=== PATIENT | female | born 1960 | race Caucasian/White ===

== ENCOUNTER 2025-02-05 09:17 | Inpatient (IN) | payer OTHER ==
[~2025-02-05] VITALS: Ht 152.4 cm; Wt 70.8 kg
[~2025-02-05 09:17] MED LIST: CODE1TAB37 PO; DOCUSATE SODIU100 MG PO; Mylicon 125MG PO
[2025-02-05 10:26] LABS: URINE APPEARANCE Clear; URINE BACTERIA 634.7 uL (0.0-1933); URINE BILIRRUBIN Negative (NEGATIVE); URINE BLOOD Negative; URINE COLOR Yellow; URINE EPITHELIAL CELLS 68.7 uL (0.0-38.8); URINE GLUCOSE Negative (NEGATIVE); URINE KETONE Negative (NEGATIVE); URINE LEUKOCYTE Trace; URINE NITRATE Negative; URINE PROTEIN Negative (NEGATIVE); URINE RBC 18.1 uL (0.0-20.8); URINE UROBILINOGEN 0.2 E.U./dl; URINE WBC 8.9 uL (0.0-23.2)
[2025-02-05 10:35] LABS: URINE CAST 0.58 uL (0.0-1.40)
[2025-02-05 10:41] LABS: BASO % 0.7 % (0.1-1.2); EOS # 0.07 (0.04-0.54); EOS % 0.5 % (0.7-7.0); LYMPH # 5.93 (1.18-3.74); LYMPH % 38.7 % (19.3-53.1); MEAN PLATELET VOLUME 10.40 fl (9.4-12.4); MONO # 1.21 (0.24-0.82); MONO % 7.9 % (4.7-12.5); NEUT # 7.54 (1.56-6.13); NEUT % 49.2 % (34.0-71.1); RED CELL DISTRIBUTION WIDTH 16.7 % (11.6-14.4)
[2025-02-05] MEDS ORDERED: SODIUM CHLORIDE 0.45 % 1,000 ML IV SCH (10:45)
[2025-02-05 10:53] LABS: ALT/SGPT 29.0 U/L (12-78); AST/SGOT 17.0 U/L (15-37); BILIRUBIN TOTAL 0.5 mg/dL (0.3-1.2); BUN CREA RATIO 24.0 (7.0-25.0); CREATININE SERUM 1.35 mg/dL (0.55-1.02); GFR 39.23; GLOBULINA 4.2 G/DL (2.4-3.5); GLUCOSE FASTING 120.0 mg/dL (65-100); OSMOLALITY SERUM 292.0 MOSM/KG (275-295)
[2025-02-05] MEDS ORDERED: ONDANSETRON HCL 2 MG/ML VIAL IV PRN (11:00)
[2025-02-05] MEDS ORDERED: hydrALAZINE HCL 20 MG VIAL IV PRN (11:00)
[2025-02-05 11:02] LABS: ERYTHROCYTE SEDIMENTATION RATE 53 mm/hr (0-30)
[2025-02-05] MEDS ORDERED: LORazepam 2 MG/ML VIAL ONE (11:15)
[2025-02-05] MEDS ORDERED: DIPHENHYDRAMINE HCL 50 MG/ML VIAL 1ML ONE (11:16)
[2025-02-05] MEDS ORDERED: LEVALBUTEROL HCL 1.25 MG/3 ML SOLUTION IH NR (12:00)
[2025-02-05] MEDS ORDERED: LOSARTAN POTASSIUM 100 MG TABLET PO NR (12:00)
[2025-02-05] MEDS ORDERED: ACETAMINOPHEN 500 MG GEL..CAP PO SCH (12:00)
[2025-02-05] MEDS ORDERED: LINEZOLID IN DEXTROSE 5% 300 ML IV NR (12:00)
[2025-02-05] MEDS ORDERED: RIVAROXABAN 10 MG TAB PO NR (12:00)
[2025-02-05] MEDS ORDERED: GUAIFENESIN 200 MG/10 ML BLIST.PACK PO SCH (12:00)
[2025-02-05] MEDS ORDERED: CEFEPIME HCL 1,000 MG VIAL IV SCH (13:00)
[2025-02-05] MEDS ORDERED: LEVALBUTEROL HCL 1.25 MG/3 ML SOLUTION IH ONE (13:28)
[2025-02-05] MEDS ORDERED: BUDESONIDE 0.5 MG/2 ML AMPUL.NEB IH ONE (13:28)
[2025-02-05] MEDS ORDERED: GUAIFENESIN 200 MG/10 ML BLIST.PACK PO ONE (14:17)
[2025-02-05 14:58] VITALS: BP 130/80
[2025-02-05] MEDS ORDERED: AMLODIPINE BESYLATE 5 MG TABLET PO SCH (17:00)
[2025-02-05 17:38] VITALS: BP 131/74
[2025-02-05] MEDS ORDERED: PANTOPRAZOLE SODIUM 40 MG/VIAL VIAL IV PUSH SCH (21:00)
[2025-02-05] MEDS ORDERED: DOCUSATE SODIUM 100MG CAP PO SCH (21:00)
[2025-02-05] MEDS ORDERED: LEVALBUTEROL HCL 1.25 MG/3 ML SOLUTION IH SCH (21:00)
[2025-02-05] MEDS ORDERED: LINEZOLID IN DEXTROSE 5% 300 ML IV SCH (21:00)
[2025-02-06 00:44] VITALS: BP 116/72; O2SAT 97
[2025-02-06 05:44] LABS: T4 FREE 1.3 NG/ML (0.76-1.46); TSH 2.09 uIU/mL (0.358-3.74)
[2025-02-06] MEDS ORDERED: RIVAROXABAN 10 MG TAB PO SCH (09:00)
[2025-02-06] MEDS ORDERED: LOSARTAN POTASSIUM 100 MG TABLET PO SCH (09:00)
[2025-02-06 09:12] VITALS: BP 102/60; O2SAT 97
[2025-02-06] MEDS ORDERED: MOMETASONE FUROATE 17GM SPRAY NASAL SCH (12:00)
[2025-02-06] MEDS ORDERED: LORATADINE 10 MG TABLET PO NR (12:00)
[2025-02-06 16:33] VITALS: BP 129/66
[2025-02-06] MEDS ORDERED: LACTOBACILLUS ACIDOPHILUS 1 CAP CAP PO SCH (17:00)
[2025-02-07 02:25] VITALS: BP 111/67; O2SAT 97
[2025-02-07 06:39] LABS: BASO % 0.4 % (0.1-1.2); EOS # 0.45 (0.04-0.54); EOS % 3.3 % (0.7-7.0); LYMPH # 4.29 (1.18-3.74); LYMPH % 31.5 % (19.3-53.1); MEAN PLATELET VOLUME 11.10 fl (9.4-12.4); MONO # 1.01 (0.24-0.82); MONO % 7.4 % (4.7-12.5); NEUT # 7.57 (1.56-6.13); NEUT % 55.6 % (34.0-71.1); RED CELL DISTRIBUTION WIDTH 17.0 % (11.6-14.4)
[2025-02-07 08:23] VITALS: BP 127/80; O2SAT 99
[2025-02-07] MEDS ORDERED: LORATADINE 10 MG TABLET PO SCH (09:00)
[2025-02-07 15:09] LABS: ALT/SGPT 21.0 U/L (12-78); AST/SGOT 15.0 U/L (15-37); BILIRUBIN TOTAL 0.5 mg/dL (0.3-1.2); BUN CREA RATIO 18.0 (7.0-25.0); CREATININE SERUM 1.09 mg/dL (0.55-1.02); GFR 50.22; GLOBULINA 4.4 G/DL (2.4-3.5); GLUCOSE FASTING 97.0 mg/dL (65-100); OSMOLALITY SERUM 284.0 MOSM/KG (275-295)
[2025-02-07 18:59] VITALS: BP 140/75; O2SAT 100
[2025-02-07] MEDS ORDERED: CEFEPIME HCL 1,000 MG VIAL IV SCH (21:00)
[2025-02-08 03:15] VITALS: BP 95/55; O2SAT 98
[2025-02-08 08:55] VITALS: BP 125/63; O2SAT 99
[2025-02-08] MEDS ORDERED: LORATADINE10 MG PO (14:13)
[2025-02-08] MEDS ORDERED: XOPENEX CO1.25 MG/0. IH (14:13)
[2025-02-08] MEDS ORDERED: AMLODIPINE BESYL5 MG PO (14:14)
[2025-02-08] MEDS ORDERED: LOSARTAN POTAS100 MG PO (14:14)
[2025-02-08] MEDS ORDERED: GERI-TUSSI100 MG/5 M PO (14:15)
[2025-02-08] MEDS ORDERED: BUDESONIDE0.5 MG/2 M IH (14:16)
[2025-02-08] MEDS ORDERED: MEDROLPACK PO (14:17)
[2025-02-08 14:26] LABS: FE 19.0 ug/dl (50-170)
[2025-02-10 10:27] LABS: FOLIC ACID 19.39 ng/ml (4.78-20)
== END 2025-02-08 16:21 | disposition home or self-care (01) | DRG 194 ==
LOC: SEC-K 09:17 → MEDI 10:36
PROVIDERS: Internal Medicine; Internal Medicine Infectious Disease; ADMIT Internal Medicine; ATTEND Internal Medicine
PROC: BB24ZZZ Computerized Tomography (CT Scan) of Bilateral Lungs (ICD-10-PCS; principal; 2025-02-05)
PROC: B246ZZZ Ultrasonography of Right and Left Heart (ICD-10-PCS; 2025-02-05)
PROC: 3E0F7GC Introduction of Other Therapeutic Substance into Respiratory Tract, Via Natural or Artificial Opening (ICD-10-PCS; 2025-02-05)
PROC: BW21ZZZ Computerized Tomography (CT Scan) of Abdomen and Pelvis (ICD-10-PCS; 2025-02-07)
DX: J18.9 Pneumonia, unspecified organism (principal); J44.1 Chronic obstructive pulmonary disease with (acute) exacerbation; J30.89 Other allergic rhinitis; I10 Essential (primary) hypertension